=== PATIENT | female | born 2000 | race African-American/Black ===

== ENCOUNTER 2023-01-25 15:45 | Emergency (ER) | payer OTHER ==
[~2023-01-25] VITALS: Ht 165.1 cm; Wt 68.0 kg
[2023-01-25] MEDS ORDERED: AZITHROMYCIN 500MG/ 250ML 250 ML IV ONE (16:30)
[2023-01-25] MEDS ORDERED: cefTRIAXone 1GM/50ML D5W 50 ML IV ONE (16:30)
[2023-01-25] MEDS ORDERED: SODIUM CHLORIDE 0.9% 2,050 ML IV ONE (16:30)
[2023-01-25 16:46] LABS: Basophils # (auto) 0 10 ^3/uL (0-0.2); Basophils % (auto) 0.4 % (0.0-2.0); Eosinophils # (auto) 0 10 ^3/uL (0-0.8); Eosinophils % (auto) 0.2 % (0.0-7.0); Hematocrit 41.6 % (36.0-46.0); Hemoglobin 14.1 g/dL (12.2-16.2); Lymphocytes # (auto) 1.7 10 ^3/uL (0.4-5.4); Lymphocytes % (auto) 17.4 % (10.0-50.0); Mean Corpuscular Hemoglobin 30.4 pg (28.0-32.0); Mean Corpuscular Hgb Conc. 33.8 g/dL (32.0-36.0); Mean Corpuscular Volume 89.8 fL (80.0-100.0); Monocytes # (auto) 0.6 10 ^3/uL (0-1.3); Monocytes % (auto) 5.7 % (0.0-12.0); Neutrophils # (auto) 7.6 10 ^3/uL (1.6-8.6); Neutrophils % (auto) 76.3 % (37.0-80.0); Red Blood Cells 4.63 10^6/uL (4.0-5.20); Red Cell Distribution Width 14.1 % (11.8-14.3)
[2023-01-25 16:53] VITALS: O2SAT 97
[2023-01-25 17:10] LABS: Alanine Aminotransferase 20 U/L (7-40); Albumin 4.5 g/dL (3.2-4.8); Alkaline Phosphatase 74 U/L (46-116); Anion Gap 18.3 (5-15); Aspartate Aminotransferase 18 U/L (13-40); BUN/Creatinine Ratio 11.4 (10.0-20.0); Blood Urea Nitrogen 14 mg/dL (9-23); Calcium 9.2 mg/dL (8.5-10.1); Carbon Dioxide 15.7 mmol/L (20-30); Chloride 101 mmol/L (98-107); Glucose 252 mg/dL (74-106); Sodium 135 mmol/L (136-145); Total Protein 7.1 g/dL (5.7-8.2)
[2023-01-25 17:12] LABS: Lactic Acid w/Reflex 8.4 mmol/L (0.4-2.0)
[2023-01-25 17:42] LABS: Blood Alcohol < 3.0 mg/dL (<10)
[2023-01-25 18:50] LABS: Urine Bacteria FEW /hpf (None Seen); Urine Blood Negative /uL (Negative); Urine Clarity Clear (Clear); Urine Color Colorless (Yellow); Urine Hyaline Cast FEW /lpf (0 - 2); Urine Protein, UAD Negative (Negative); Urine Specific Gravity 1.008 (1.001-1.035); Urine Urobilinogen Normal (Negative); Urine WBC <1 /hpf (0 - 5)
[2023-01-25 19:01] LABS: Amphetamine Screen, Urine Neg (NEGATIVE); Barbiturate Scree,Urine Neg (NEGATIVE); Benzodiazephine Screen, Urine Neg (NEGATIVE); Cannabinoid Screen, Urine Neg (NEGATIVE); Cocaine Screen, Urine Neg (NEGATIVE); Opiate Scree,Urine Neg (NEGATIVE); Phencyclidine Screen, Urine Neg (NEGATIVE)
[2023-01-25 19:05] LABS: Lactic Acid w/Reflex 4.6 mmol/L (0.4-2.0)
[2023-01-25] MEDS ORDERED: ONDANSETRON HCL 4 MG/2 ML VIAL IV ONE (19:45)
[2023-01-25] MEDS: POTASSIUM CHL 20MEQ/100ML 100 ML IV SCH (21:54)
[2023-01-25 22:01] LABS: COVID19 ANTIGEN SOFIA FIA NEGATIVE (NEGATIVE)
[2023-01-25 22:46] LABS: Acetaminophen < 2.0 UG/ML (10.0-20.0)
[2023-01-25 22:48] LABS: Alanine Aminotransferase 18 U/L (7-40); Albumin 4.2 g/dL (3.2-4.8); Alkaline Phosphatase 65 U/L (46-116); Anion Gap 9.6 (5-15); Aspartate Aminotransferase 14 U/L (13-40); BUN/Creatinine Ratio 8.5 (10.0-20.0); Bilirubin, Total 0.8 mg/dL (0.2-1.0); Blood Urea Nitrogen 7 mg/dL (9-23); Calcium 8.2 mg/dL (8.7-10.4); Carbon Dioxide 21.4 mmol/L (20-30); Chloride 107 mmol/L (98-107); Glucose 137 mg/dL (74-106); Potassium 3.5 mmol/L (3.5-5.1); Sodium 138 mmol/L (136-145); Total Protein 6.8 g/dL (5.7-8.2)
[2023-01-25 22:55] LABS: Salicylate < 3.0 mg/dL (2.8-20.0)
[2023-01-25] MEDS: MAGNESIUM SULFATE 1GM/100ML 100 ML IV SCH ×2 (23:02→23:43)
[2023-01-25 23:09] VITALS: PULSE 107; RESP 22; O2SAT 99
[2023-01-26 00:38] VITALS: BP 123/70; PULSE 106; RESP 11; TEMP 98.6; O2SAT 99
[2023-01-26] MEDS: POTASSIUM CHL 20MEQ/100ML 100 ML IV SCH (01:06)
== END 2023-01-26 01:00 | disposition short-term general hospital (02) ==
LOC: EDBD 15:45 → ER 15:45
DX: R56.9 Unspecified convulsions (principal); E87.6 Hypokalemia; Z20.822 Contact with and (suspected) exposure to COVID-19
CPT/HCPCS: 36415; 70450; 71045; 80053; 80307; 80320; 80329; 81001; 81025; 82010; 82962; 83605; 83735; 85025; 87040; 87426; 93005; 96365; 96366; 96367; 96368; 96375; 99285; J0456; J1953; J2405; J3475; J3480; J7030; J7060